=== PATIENT | male | born 1955 | race Caucasian/White ===

== ENCOUNTER 2024-01-07 04:29 | Inpatient (IN) ==
[2024-01-07] MEDS ORDERED: IOPAMIDOL 100 ML BOTTLE IV ONE (04:30)
[2024-01-07] MEDS: fentaNYL 100 MCG/2 ML VIAL IV ONE ×2 (04:40→12:08)
[2024-01-07] MEDS: METOPROLOL TARTRATE 5 MG/5 ML VIAL IV ONE ×3 (04:52→05:35)
[2024-01-07] MEDS: ONDANSETRON 4 MG/2 ML VIAL IV ONE (05:02)
[2024-01-07 05:16] LABS: ALT/SGPT 25 U/L (<40); AST/SGOT 24 U/L (<40); Albumin 4.4 gm/dL (3.2-5.2); Albumin/Globulin Ratio 1.8 (1.0-2.3); Alkaline Phosphatase 70 U/L (39-117); Amylase 42 U/L (28-100); Bilirubin,Total 1.4 mg/dL (0.1-1.0); Blood Urea Nitrogen 29 mg/dL (8-23); Calcium 9.3 mg/dL (8.6-10.4); Carbon Dioxide 25 mmol/L (22-30); Chloride 100 mmol/L (96-108); Globulin 2.5 gm/dL (2.2-3.7); Glomerular Filtration Rate 46; Glucose 165 mg/dL (70-105)
[2024-01-07 05:38] LABS: Phosphorous 2.9 mg/dL (2.5-4.5)
[2024-01-07 05:45] LABS: Thyroid Stimulating Hormone 1.91 uIU/mL (0.27-5.01)
[2024-01-07] MEDS: AMIODARONE 150 MG/3 ML VIAL IV ONE (05:51)
[2024-01-07 06:00] LABS: Basophils # (Auto) 0.04 K/mcL (0.00-0.30); Basophils % (Auto) 0.2 % (0.0-2.0); Eosinophils # (Auto) 0.02 K/mcL (0.00-0.70); Eosinophils % (Auto) 0.1 % (0.0-7.0); Hematocrit 56.5 % (40.1-51.0); Lymphocytes # (Auto) 1.06 K/mcL (1.50-4.80); Lymphocytes % (Auto) 6.3 % (15.5-49.0); Mean Cell Volume 93.4 fL (80.0-100.0); Mean Corpuscular HGB Conc 31.9 g/dL (31.0-36.0); Mean Platelet Volume 10.2 fL (8.8-12.5); Monocytes # (Auto) 1.14 K/mcL (0.10-0.90); Monocytes % (Auto) 6.8 % (1.0-12.0); Neutrophils % (Auto) 86.6 % (38.0-78.0); Platelet Count 167 K/mcL (140-440); RBC 6.05 M/mcL (4.63-6.08); Red Cell Distribution Width 13.7 % (11.5-14.5); WBC 16.7 K/mcL (4.5-11.0)
[2024-01-07 06:00] LABS: Partial Thromboplastin Time 33.7 sec (20.0-37.0)
[2024-01-07 06:09] LABS: INR 2.4 (0.9-1.1); Prothrombin Time 27.4 sec (11.9-14.5)
[2024-01-07] MEDS: 0.9 % SODIUM CHLORIDE 500 ML IV SCH (06:21)
[2024-01-07] MEDS: AMIODARONE 360 MG in PREMIX 1 BAG IV SCH ×2 (06:21→12:47)
[2024-01-07] MEDS: 0.9 % SODIUM CHLORIDE 1,000 ML IV ONE (06:21)
[2024-01-07] MEDS: PIPERACILLIN SODIUM/TAZOBACTAM 3.375 GM in DEXTROSE 5% IN WATER 50 ML IV ONE ×2 (06:21→06:24)
[2024-01-07] MEDS: LEVALBUTEROL 1.25 MG/3 ML AMPUL.NEB NEB ONE (06:22)
[2024-01-07 06:43] LABS: Free T4 (Free Thyroxine) 1.15 ng/dL (0.93-1.70)
[2024-01-07 08:28] LABS: Appearance,Urine Clear (Clear); Bilirubin,Urine Negative (Negative); Color,Urine Orange; Culture Indicated,Urine No; Glucose,Urine (UA) >=1000 mg/dL (Negative); Ketones,Urine 15 mg/dL (Negative); Leukocyte Esterase,Urine Negative /uL (Negative); Mucus,Urine FEW /hpf; Nitrate,Urine Negative (Negative); Protein,Urine 100 mg/dL (Negative); Sulfosalicylic Acid,Urine 1+ mg/dL (NEGATIVE); Urine Blood Small ery/mcL (Negative); Urine RBC 2 /hpf (0-3); Urine Squamous Epithelial Cell 0 /hpf (0-4); Urine Transitional Epi Cells < 1 /hpf (0-2); Urine WBC 2 /hpf (0-4); Urobilinogen,Urine Normal
[2024-01-07] MEDS: PHYTONADIONE 10 MG in 0.9 % SODIUM CHLORIDE 50 ML IV ONE (10:32)
[2024-01-07 12:07] LABS: Basophils # (Auto) 0.01 K/mcL (0.00-0.30); Basophils % (Auto) 0.1 % (0.0-2.0); Eosinophils # (Auto) 0 K/mcL (0.00-0.70); Eosinophils % (Auto) 0 % (0.0-7.0); Hematocrit 55.1 % (40.1-51.0); Hemoglobin 17.3 g/dL (13.7-17.5); Lymphocytes # (Auto) 0.42 K/mcL (1.50-4.80); Lymphocytes % (Auto) 2.1 % (15.5-49.0); Mean Cell Volume 93.9 fL (80.0-100.0); Mean Corpuscular HGB Conc 31.4 g/dL (31.0-36.0); Mean Platelet Volume 10.7 fL (8.8-12.5); Monocytes # (Auto) 1.46 K/mcL (0.10-0.90); Monocytes % (Auto) 7.3 % (1.0-12.0); Neutrophils % (Auto) 90.2 % (38.0-78.0); Platelet Count 138 K/mcL (140-440); RBC 5.87 M/mcL (4.63-6.08); Red Cell Distribution Width 13.9 % (11.5-14.5)
[2024-01-07 12:34] LABS: ALT/SGPT 25 U/L (<40); AST/SGOT 26 U/L (<40); Albumin 3.9 gm/dL (3.2-5.2); Albumin/Globulin Ratio 1.7 (1.0-2.3); Alkaline Phosphatase 57 U/L (39-117); Blood Urea Nitrogen 30 mg/dL (8-23); Calcium 8.5 mg/dL (8.6-10.4); Carbon Dioxide 20 mmol/L (22-30); Chloride 103 mmol/L (96-108); Globulin 2.3 gm/dL (2.2-3.7); Glomerular Filtration Rate 50; Glucose 141 mg/dL (70-105)
[2024-01-07] MEDS ORDERED: SENNOSIDES 1 TABLET PO PRN (12:41)
[2024-01-07] MEDS ORDERED: ACETAMINOPHEN 325 MG TABLET PO PRN (12:41)
[2024-01-07 13:18] LABS: INR 2.1 (0.9-1.1); Prothrombin Time 24.5 sec (11.9-14.5)
[2024-01-07] MEDS: 0.9 % SODIUM CHLORIDE 250 ML IV SCH ×2 (14:04)
[2024-01-07] MEDS: LACTATED RINGERS 1,000 ML IV SCH ×2 (14:36→21:37)
[2024-01-07] MEDS: METOPROLOL SUCCINATE 50 MG TAB.XL.24H PO SCH (14:36)
[2024-01-07] MEDS: ONDANSETRON 4 MG/2 ML VIAL IV PRN (14:36)
[2024-01-07] MEDS: HEPARIN SOD,PORK IN 0.45% NACL 25,000 UNIT in PREMIX 1 BAG IV SCH ×2 (14:36→15:10)
[2024-01-07] MEDS: morphine 4 MG/ML VIAL IV PRN (14:36)
[2024-01-07] MEDS: 0.9 % SODIUM CHLORIDE 10 ML SYRINGE IV SCH (14:37)
[2024-01-07] MEDS: HEPARIN SOD,PORK IN 0.45% NACL 500 ML IV ONE (15:09)
[2024-01-07 15:35] LABS: Partial Thromboplastin Time 35.8 sec (20.0-37.0)
[2024-01-07 15:36] LABS: INR 1.8 (0.9-1.1); Prothrombin Time 21.5 sec (11.9-14.5)
[2024-01-07] MEDS: PIPERACILLIN SODIUM/TAZOBACTAM 4.5 GM in 0.9 % SODIUM CHLORIDE 100 ML IV SCH (16:00)
[2024-01-07] MEDS: DOCUSATE SODIUM 100 MG CAPSULE PO SCH (21:42)
[2024-01-07] MEDS: Sacubitril-Valsartan [Entresto] 24-26 mg PO SCH (21:48)
[2024-01-08 00:07] LABS: INR 1.6 (0.9-1.1); Prothrombin Time 19.5 sec (11.9-14.5)
[2024-01-08] MEDS: AMIODARONE 360 MG/200 ML BAG IV ONE (00:14)
[2024-01-08] MEDS: PHYTONADIONE 10 MG/ML AMPUL SQ PRN (00:45)
[2024-01-08 05:35] LABS: Basophils # (Auto) 0.04 K/mcL (0.00-0.30); Basophils % (Auto) 0.3 % (0.0-2.0); Eosinophils # (Auto) 0 K/mcL (0.00-0.70); Eosinophils % (Auto) 0 % (0.0-7.0); Hematocrit 51.3 % (40.1-51.0); Hemoglobin 16.1 g/dL (13.7-17.5); Lymphocytes # (Auto) 0.95 K/mcL (1.50-4.80); Lymphocytes % (Auto) 6.4 % (15.5-49.0); Mean Cell Volume 94.5 fL (80.0-100.0); Mean Corpuscular HGB Conc 31.4 g/dL (31.0-36.0); Mean Platelet Volume 10.1 fL (8.8-12.5); Monocytes # (Auto) 1.08 K/mcL (0.10-0.90); Monocytes % (Auto) 7.3 % (1.0-12.0); Neutrophils % (Auto) 85.9 % (38.0-78.0); Platelet Count 117 K/mcL (140-440); RBC 5.43 M/mcL (4.63-6.08); Red Cell Distribution Width 14.1 % (11.5-14.5); WBC 14.8 K/mcL (4.5-11.0)
[2024-01-08 06:00] LABS: ALT/SGPT 20 U/L (<40); AST/SGOT 23 U/L (<40); Albumin 3.6 gm/dL (3.2-5.2); Albumin/Globulin Ratio 1.5 (1.0-2.3); Alkaline Phosphatase 54 U/L (39-117); Bilirubin,Total 1.2 mg/dL (0.1-1.0); Blood Urea Nitrogen 30 mg/dL (8-23); Calcium 9.5 mg/dL (8.6-10.4); Carbon Dioxide 25 mmol/L (22-30); Chloride 102 mmol/L (96-108); Globulin 2.4 gm/dL (2.2-3.7); Glomerular Filtration Rate 55; Glucose 101 mg/dL (70-105)
[2024-01-08] MEDS: HEPARIN 5,000 UNIT/ML VIAL ONE (06:34)
[2024-01-08] MEDS: HEPARIN SOD,PORK IN 0.45% NACL 500 ML IV ONE (07:12)
[2024-01-08 08:07] LABS: INR 1.6 (0.9-1.1)
[2024-01-08] MEDS: ACETAMINOPHEN 325 MG TABLET PO PRN (08:30)
[2024-01-08] MEDS: 0.9 % SODIUM CHLORIDE 250 ML IV SCH (08:57)
[2024-01-08] MEDS ORDERED: SPIRONOLACTONE 25 MG TABLET PO SCH (09:00)
[2024-01-08] MEDS: PHYTONADIONE 10 MG/ML AMPUL ONE (11:58)
[2024-01-08] MEDS: PHYTONADIONE 10 MG in 0.9 % SODIUM CHLORIDE 50 ML IV SCH (11:58)
[2024-01-08] MEDS: IPRATROPIUM/ALBUTEROL 3 ML AMPUL.NEB NEB PRN (16:57)
[2024-01-08 18:38] LABS: INR 1.3 (0.9-1.1); Prothrombin Time 16.9 sec (11.9-14.5)
[2024-01-08] MEDS: TAMSULOSIN 0.4 MG CAPSULE PO SCH (22:13)
[2024-01-09] MEDS: CALCIUM CARBONATE 500 MG TAB.CHEW CHEWED PRN (00:20)
[2024-01-09] MEDS: PROMETHAZINE 25 MG/ML VIAL IV ONE (01:08)
[2024-01-09] MEDS: PROMETHAZINE 25 MG/ML VIAL ONE (02:32)
[2024-01-09] MEDS ORDERED: IOPAMIDOL 100 ML BOTTLE IV ONE (03:51)
[2024-01-09 05:58] LABS: Basophils # (Auto) 0.02 K/mcL (0.00-0.30); Basophils % (Auto) 0.2 % (0.0-2.0); Eosinophils # (Auto) 0 K/mcL (0.00-0.70); Eosinophils % (Auto) 0 % (0.0-7.0); Hematocrit 50.5 % (40.1-51.0); Hemoglobin 15.8 g/dL (13.7-17.5); Lymphocytes # (Auto) 0.58 K/mcL (1.50-4.80); Lymphocytes % (Auto) 4.5 % (15.5-49.0); Mean Corpuscular HGB Conc 31.3 g/dL (31.0-36.0); Mean Platelet Volume 10.6 fL (8.8-12.5); Monocytes # (Auto) 0.91 K/mcL (0.10-0.90); Neutrophils % (Auto) 88.1 % (38.0-78.0); Platelet Count 139 K/mcL (140-440); RBC 5.37 M/mcL (4.63-6.08); Red Cell Distribution Width 13.9 % (11.5-14.5); WBC 12.9 K/mcL (4.5-11.0)
[2024-01-09 06:09] LABS: ALT/SGPT 15 U/L (<40); AST/SGOT 22 U/L (<40); Albumin 3.4 gm/dL (3.2-5.2); Albumin/Globulin Ratio 1.3 (1.0-2.3); Alkaline Phosphatase 51 U/L (39-117); Bilirubin,Total 1.6 mg/dL (0.1-1.0); Blood Urea Nitrogen 33 mg/dL (8-23); Carbon Dioxide 26 mmol/L (22-30); Chloride 100 mmol/L (96-108); Globulin 2.6 gm/dL (2.2-3.7); Glomerular Filtration Rate 50; Glucose 118 mg/dL (70-105)
[2024-01-09] MEDS ORDERED: KETAMINE 50 MG/ML Syringe IV ONE (12:35)
[2024-01-09] MEDS ORDERED: fentaNYL 100 MCG/2 ML VIAL ONE (12:35)
[2024-01-09] MEDS ORDERED: ROCURONIUM 10 MG/ML ML IV ONE (12:36)
[2024-01-09] MEDS ORDERED: ESMOLOL 100 MG/10 ML VIAL IV ONE (12:39)
[2024-01-09] MEDS ORDERED: LIDOCAINE 2% PF 5 ML VIAL ONE ×2 (12:39→14:12)
[2024-01-09] MEDS ORDERED: PROPOFOL 200 MG/20 ML VIAL IV ONE (12:39)
[2024-01-09] MEDS ORDERED: PHENYLephrine 1 MG/10 ML SYRINGE (ANEST) ONE ×2 (12:39→13:18)
[2024-01-09] MEDS ORDERED: PHENYLEPHRINE 10 MG/ML VIAL ONE (13:18)
[2024-01-09] MEDS ORDERED: SUGAMMADEX SODIUM 200 MG/2 ML VIAL IV ONE ×2 (13:50)
[2024-01-09] MEDS ORDERED: ONDANSETRON 4 MG/2 ML VIAL ONE (13:52)
[2024-01-09] MEDS ORDERED: DEXAMETHASONE 10 MG/ML VIAL ONE (13:52)
[2024-01-09] MEDS ORDERED: ROPIVACAINE HCL/PF 30 ML VIAL IJ ONE (13:54)
[2024-01-09] MEDS ORDERED: IPRATROPIUM/ALBUTEROL 3 ML AMPUL.NEB NEB PRN (14:15)
[2024-01-09] MEDS ORDERED: PROMETHAZINE 25 MG/ML VIAL IV PRN (14:15)
[2024-01-09] MEDS ORDERED: ONDANSETRON 4 MG/2 ML VIAL IV PRN (14:15)
[2024-01-09] MEDS ORDERED: fentaNYL 100 MCG/2 ML VIAL IV PRN (14:15)
[2024-01-09] MEDS ORDERED: HYDROmorphone 0.5 MG/0.5 ML SYRINGE IV PRN (14:15)
[2024-01-09] MEDS ORDERED: ALBUTEROL SULFATE 60 PUFF INHALER ONE (14:17)
[2024-01-09] MEDS: LACTATED RINGERS 1,000 ML IV ONE (17:05)
[2024-01-09] MEDS: LACTATED RINGERS 1,000 ML IV SCH ×2 (17:31→18:34)
[2024-01-09] MEDS ORDERED: ACETAMINOPHEN 1,000 MG/100 ML BAG IV PRN (17:37)
[2024-01-09] MEDS: ACETAMINOPHEN 1,000 MG/100 ML BAG IV SCH (17:45)
[2024-01-09] MEDS: ALBUMIN HUMAN 25 GM/100 ML BAG IV SCH (18:52)
[2024-01-09] MEDS: METOPROLOL TARTRATE 5 MG/5 ML VIAL IV SCH (20:07)
[2024-01-10 05:25] LABS: Basophils # (Auto) 0.01 K/mcL (0.00-0.30); Basophils % (Auto) 0.1 % (0.0-2.0); Eosinophils # (Auto) 0 K/mcL (0.00-0.70); Eosinophils % (Auto) 0 % (0.0-7.0); Hematocrit 48.8 % (40.1-51.0); Hemoglobin 15.4 g/dL (13.7-17.5); Lymphocytes # (Auto) 0.41 K/mcL (1.50-4.80); Lymphocytes % (Auto) 3.6 % (15.5-49.0); Mean Cell Volume 94.8 fL (80.0-100.0); Mean Corpuscular HGB Conc 31.6 g/dL (31.0-36.0); Mean Platelet Volume 10.4 fL (8.8-12.5); Monocytes # (Auto) 0.54 K/mcL (0.10-0.90); Monocytes % (Auto) 4.7 % (1.0-12.0); Neutrophils % (Auto) 91.5 % (38.0-78.0); Platelet Count 143 K/mcL (140-440); RBC 5.15 M/mcL (4.63-6.08); Red Cell Distribution Width 13.9 % (11.5-14.5); WBC 11.5 K/mcL (4.5-11.0)
[2024-01-10] MEDS: fentaNYL 100 MCG/2 ML VIAL IV PRN (05:38)
[2024-01-10 06:20] LABS: ALT/SGPT 10 U/L (<40); AST/SGOT 17 U/L (<40); Albumin 3.6 gm/dL (3.2-5.2); Albumin/Globulin Ratio 1.3 (1.0-2.3); Alkaline Phosphatase 43 U/L (39-117); Blood Urea Nitrogen 41 mg/dL (8-23); Calcium 9.9 mg/dL (8.6-10.4); Carbon Dioxide 30 mmol/L (22-30); Chloride 102 mmol/L (96-108); Globulin 2.7 gm/dL (2.2-3.7); Glomerular Filtration Rate 40; Glucose 163 mg/dL (70-105)
[2024-01-10] MEDS: LACTATED RINGERS 1,000 ML IV SCH (07:36)
[2024-01-10] MEDS: HEPARIN SOD,PORK IN 0.45% NACL 25,000 UNIT in PREMIX 1 BAG IV SCH (11:26)
[2024-01-10] MEDS: METOCLOPRAMIDE 10 MG/2 ML VIAL IV SCH (13:42)
[2024-01-10] MEDS: morphine 4 MG/ML VIAL IV ONE (14:04)
[2024-01-10] MEDS: METOPROLOL TARTRATE 5 MG/5 ML VIAL IV PRN (15:33)
[2024-01-11 06:12] LABS: Basophils # (Auto) 0.01 K/mcL (0.00-0.30); Basophils % (Auto) 0.1 % (0.0-2.0); Eosinophils # (Auto) 0.01 K/mcL (0.00-0.70); Eosinophils % (Auto) 0.1 % (0.0-7.0); Hematocrit 47.9 % (40.1-51.0); Hemoglobin 14.7 g/dL (13.7-17.5); Lymphocytes # (Auto) 0.98 K/mcL (1.50-4.80); Lymphocytes % (Auto) 8.3 % (15.5-49.0); Mean Cell Volume 95.8 fL (80.0-100.0); Mean Corpuscular HGB Conc 30.7 g/dL (31.0-36.0); Mean Platelet Volume 10.5 fL (8.8-12.5); Monocytes # (Auto) 1.03 K/mcL (0.10-0.90); Monocytes % (Auto) 8.7 % (1.0-12.0); Neutrophils % (Auto) 82.5 % (38.0-78.0); Platelet Count 155 K/mcL (140-440); Red Cell Distribution Width 13.8 % (11.5-14.5); WBC 11.8 K/mcL (4.5-11.0)
[2024-01-11 06:21] LABS: ALT/SGPT 12 U/L (<40); AST/SGOT 24 U/L (<40); Albumin 4.1 gm/dL (3.2-5.2); Albumin/Globulin Ratio 1.7 (1.0-2.3); Alkaline Phosphatase 39 U/L (39-117); Blood Urea Nitrogen 37 mg/dL (8-23); Calcium 10.3 mg/dL (8.6-10.4); Carbon Dioxide 36 mmol/L (22-30); Chloride 105 mmol/L (96-108); Globulin 2.4 gm/dL (2.2-3.7); Glomerular Filtration Rate 55; Glucose 123 mg/dL (70-105)
[2024-01-11] MEDS: LACTATED RINGERS 1,000 ML IV SCH (07:24)
[2024-01-11] MEDS: 0.45 % SODIUM CHLORIDE 1,000 ML IV SCH (08:14)
[2024-01-11 09:41] LABS: INR 1.1 (0.9-1.1); Prothrombin Time 15.1 sec (11.9-14.5)
[2024-01-11 14:17] LABS: Basophils # (Auto) 0.01 K/mcL (0.00-0.30); Basophils % (Auto) 0.1 % (0.0-2.0); Eosinophils # (Auto) 0.01 K/mcL (0.00-0.70); Eosinophils % (Auto) 0.1 % (0.0-7.0); Hematocrit 48.8 % (40.1-51.0); Hemoglobin 14.8 g/dL (13.7-17.5); Lymphocytes # (Auto) 1.01 K/mcL (1.50-4.80); Lymphocytes % (Auto) 8.9 % (15.5-49.0); Mean Cell Volume 96.1 fL (80.0-100.0); Mean Corpuscular HGB Conc 30.3 g/dL (31.0-36.0); Mean Platelet Volume 10.2 fL (8.8-12.5); Monocytes # (Auto) 1.09 K/mcL (0.10-0.90); Monocytes % (Auto) 9.6 % (1.0-12.0); Neutrophils % (Auto) 80.9 % (38.0-78.0); Platelet Count 160 K/mcL (140-440); RBC 5.08 M/mcL (4.63-6.08); Red Cell Distribution Width 13.8 % (11.5-14.5); WBC 11.3 K/mcL (4.5-11.0)
[2024-01-11] MEDS: DEXTROSE 5% IN WATER 1,000 ML IV SCH (14:45)
[2024-01-11 16:09] LABS: Estimated Average Glucose(eAG) 128 mg/dL; Hemoglobin A1C 6.1 % Hgb (4.0-6.0)
[2024-01-11] MEDS: PANTOPRAZOLE 40 MG VIAL IV SCH (17:13)
[2024-01-12 06:03] LABS: Basophils # (Auto) 0.02 K/mcL (0.00-0.30); Basophils % (Auto) 0.2 % (0.0-2.0); Eosinophils # (Auto) 0.09 K/mcL (0.00-0.70); Eosinophils % (Auto) 1.1 % (0.0-7.0); Hematocrit 47.5 % (40.1-51.0); Hemoglobin 14.5 g/dL (13.7-17.5); Lymphocytes # (Auto) 1.14 K/mcL (1.50-4.80); Lymphocytes % (Auto) 13.4 % (15.5-49.0); Mean Cell Volume 96.2 fL (80.0-100.0); Mean Corpuscular HGB Conc 30.5 g/dL (31.0-36.0); Mean Platelet Volume 10.5 fL (8.8-12.5); Monocytes # (Auto) 0.89 K/mcL (0.10-0.90); Monocytes % (Auto) 10.5 % (1.0-12.0); Neutrophils % (Auto) 74.4 % (38.0-78.0); Platelet Count 145 K/mcL (140-440); RBC 4.94 M/mcL (4.63-6.08); Red Cell Distribution Width 13.8 % (11.5-14.5); WBC 8.5 K/mcL (4.5-11.0)
[2024-01-12 06:54] LABS: ALT/SGPT 26 U/L (<40); AST/SGOT 41 U/L (<40); Albumin/Globulin Ratio 1.9 (1.0-2.3); Alkaline Phosphatase 40 U/L (39-117); Bilirubin,Direct 0.6 mg/dL (<0.3); Bilirubin,Total 1.4 mg/dL (0.1-1.0); Blood Urea Nitrogen 31 mg/dL (8-23); Calcium 9.5 mg/dL (8.6-10.4); Carbon Dioxide 31 mmol/L (22-30); Chloride 102 mmol/L (96-108); Globulin 2.1 gm/dL (2.2-3.7); Glomerular Filtration Rate 61; Glucose 116 mg/dL (70-105); Lactate Dehydrogenase 185 U/L (135-225); Phosphorous 2.3 mg/dL (2.5-4.5); Triglycerides 95 mg/dL (<150); Uric Acid 2.5 mg/dL (2.5-8.0)
[2024-01-12] MEDS: METOPROLOL TARTRATE 5 MG/5 ML VIAL IV SCH (07:54)
[2024-01-12] MEDS: FUROSEMIDE 20 MG TABLET PO SCH (08:31)
[2024-01-12] MEDS: SPIRONOLACTONE 25 MG TABLET PO SCH (08:31)
[2024-01-12] MEDS: POTASSIUM CHLORIDE 20 MEQ PACKET PO ONE (14:13)
[2024-01-12] MEDS: METOPROLOL SUCCINATE 50 MG TAB.XL.24H PO SCH (17:15)
[2024-01-12] MEDS: ATORVASTATIN 10 MG TABLET PO SCH (20:25)
[2024-01-12 23:02] LABS: Blood Urea Nitrogen 30 mg/dL (8-23); Calcium 9.5 mg/dL (8.6-10.4); Carbon Dioxide 33 mmol/L (22-30); Chloride 102 mmol/L (96-108); Glomerular Filtration Rate 61; Glucose 113 mg/dL (70-105)
[2024-01-13 06:38] LABS: ALT/SGPT 74 U/L (<40); AST/SGOT 78 U/L (<40); Albumin 3.7 gm/dL (3.2-5.2); Albumin/Globulin Ratio 1.8 (1.0-2.3); Alkaline Phosphatase 47 U/L (39-117); Bilirubin,Direct 0.5 mg/dL (<0.3); Bilirubin,Total 1.3 mg/dL (0.1-1.0); Blood Urea Nitrogen 26 mg/dL (8-23); Calcium 9.2 mg/dL (8.6-10.4); Carbon Dioxide 28 mmol/L (22-30); Chloride 104 mmol/L (96-108); Globulin 2.1 gm/dL (2.2-3.7); Glomerular Filtration Rate 67; Glucose 142 mg/dL (70-105); Lactate Dehydrogenase 215 U/L (135-225); Phosphorous 2.6 mg/dL (2.5-4.5); Triglycerides 117 mg/dL (<150); Uric Acid 1.8 mg/dL (2.5-8.0)
[2024-01-13] MEDS: ENOXAPARIN 40 MG/0.4 ML SYRINGE SQ ONE (08:27)
[2024-01-13] MEDS: WARFARIN 7.5 MG TABLET PO ONE (13:33)
[2024-01-14 06:12] LABS: Basophils # (Auto) 0.04 K/mcL (0.00-0.30); Basophils % (Auto) 0.4 % (0.0-2.0); Eosinophils # (Auto) 0.22 K/mcL (0.00-0.70); Eosinophils % (Auto) 2.2 % (0.0-7.0); Hemoglobin 16.1 g/dL (13.7-17.5); Lymphocytes # (Auto) 1.16 K/mcL (1.50-4.80); Lymphocytes % (Auto) 11.4 % (15.5-49.0); Mean Cell Volume 95.1 fL (80.0-100.0); Mean Platelet Volume 10.4 fL (8.8-12.5); Monocytes # (Auto) 0.73 K/mcL (0.10-0.90); Monocytes % (Auto) 7.2 % (1.0-12.0); Neutrophils % (Auto) 78.3 % (38.0-78.0); Platelet Count 190 K/mcL (140-440); RBC 5.47 M/mcL (4.63-6.08); Red Cell Distribution Width 13.1 % (11.5-14.5); WBC 10.2 K/mcL (4.5-11.0)
[2024-01-14 06:47] LABS: INR 1.2 (0.9-1.1); Prothrombin Time 15.4 sec (11.9-14.5)
[2024-01-14 07:03] LABS: ALT/SGPT 133 U/L (<40); AST/SGOT 101 U/L (<40); Albumin 3.8 gm/dL (3.2-5.2); Albumin/Globulin Ratio 1.5 (1.0-2.3); Alkaline Phosphatase 56 U/L (39-117); Bilirubin,Direct 0.5 mg/dL (<0.3); Bilirubin,Total 1.2 mg/dL (0.1-1.0); Blood Urea Nitrogen 26 mg/dL (8-23); Calcium 9.2 mg/dL (8.6-10.4); Carbon Dioxide 26 mmol/L (22-30); Chloride 104 mmol/L (96-108); Globulin 2.5 gm/dL (2.2-3.7); Glomerular Filtration Rate 67; Glucose 144 mg/dL (70-105); Lactate Dehydrogenase 240 U/L (135-225); Phosphorous 2.1 mg/dL (2.5-4.5); Triglycerides 125 mg/dL (<150); Uric Acid 2.1 mg/dL (2.5-8.0)
[2024-01-14] MEDS: ENOXAPARIN 40 MG/0.4 ML SYRINGE SQ SCH (08:42)
[2024-01-14] MEDS: METOPROLOL SUCCINATE 50 MG TAB.XL.24H PO SCH (08:42)
[2024-01-14] MEDS: oxyCODONE/APAP 5/325MG TABLET PO PRN (09:26)
[2024-01-14] MEDS: METOPROLOL TARTRATE 5 MG/5 ML VIAL IV PRN (10:04)
[2024-01-14] MEDS: WARFARIN 7.5 MG TABLET PO ONE (14:51)
[2024-01-14] MEDS: oxyCODONE IR 5 MG TABLET PO PRN (20:42)
[2024-01-15 06:27] LABS: ALT/SGPT 336 U/L (<40); AST/SGOT 248 U/L (<40); Albumin 3.6 gm/dL (3.2-5.2); Albumin/Globulin Ratio 1.7 (1.0-2.3); Alkaline Phosphatase 60 U/L (39-117); Bilirubin,Direct 0.4 mg/dL (<0.3); Bilirubin,Total 0.7 mg/dL (0.1-1.0); Blood Urea Nitrogen 23 mg/dL (8-23); Carbon Dioxide 28 mmol/L (22-30); Chloride 105 mmol/L (96-108); Globulin 2.1 gm/dL (2.2-3.7); Glomerular Filtration Rate 76; Glucose 116 mg/dL (70-105); Lactate Dehydrogenase 257 U/L (135-225); Phosphorous 2.5 mg/dL (2.5-4.5); Triglycerides 115 mg/dL (<150); Uric Acid 2.9 mg/dL (2.5-8.0)
[2024-01-15 06:52] LABS: INR 1.4 (0.9-1.1); Prothrombin Time 18.3 sec (11.9-14.5)
[2024-01-15] MEDS: WARFARIN 5 MG TABLET PO ONE (15:18)
[2024-01-15] MEDS: PANTOPRAZOLE 40 MG TABLET PO SCH (17:16)
[2024-01-16 06:50] LABS: ALT/SGPT 403 U/L (<40); AST/SGOT 213 U/L (<40); Albumin 3.7 gm/dL (3.2-5.2); Albumin/Globulin Ratio 1.5 (1.0-2.3); Alkaline Phosphatase 69 U/L (39-117); Bilirubin,Direct 0.3 mg/dL (<0.3); Bilirubin,Total 0.7 mg/dL (0.1-1.0); Blood Urea Nitrogen 25 mg/dL (8-23); Calcium 9.3 mg/dL (8.6-10.4); Carbon Dioxide 27 mmol/L (22-30); Chloride 101 mmol/L (96-108); Globulin 2.4 gm/dL (2.2-3.7); Glomerular Filtration Rate 67; Glucose 117 mg/dL (70-105); Lactate Dehydrogenase 225 U/L (135-225); Phosphorous 2.3 mg/dL (2.5-4.5); Triglycerides 119 mg/dL (<150); Uric Acid 4.2 mg/dL (2.5-8.0)
[2024-01-16 07:09] LABS: INR 1.6 (0.9-1.1); Prothrombin Time 19.6 sec (11.9-14.5)
[2024-01-16] MEDS: FUROSEMIDE 40 MG/4 ML VIAL IV ONE (09:16)
[2024-01-16] MEDS: METOPROLOL SUCCINATE 50 MG TAB.XL.24H PO SCH (09:16)
[2024-01-16] MEDS: SIMETHICONE 80 MG TAB.CHEW CHEWED SCH (13:29)
[2024-01-16] MEDS: WARFARIN 5 MG TABLET PO ONE (13:29)
[2024-01-16] MEDS: FUROSEMIDE 20 MG/2 ML VIAL IV ONE (15:52)
[2024-01-17 06:45] LABS: ALT/SGPT 360 U/L (<40); AST/SGOT 144 U/L (<40); Albumin 3.9 gm/dL (3.2-5.2); Albumin/Globulin Ratio 1.6 (1.0-2.3); Alkaline Phosphatase 72 U/L (39-117); Bilirubin,Direct 0.3 mg/dL (<0.3); Bilirubin,Total 0.8 mg/dL (0.1-1.0); Blood Urea Nitrogen 30 mg/dL (8-23); Calcium 9.2 mg/dL (8.6-10.4); Carbon Dioxide 29 mmol/L (22-30); Chloride 98 mmol/L (96-108); Globulin 2.4 gm/dL (2.2-3.7); Glomerular Filtration Rate 55; Glucose 133 mg/dL (70-105); Lactate Dehydrogenase 227 U/L (135-225); Phosphorous 2.4 mg/dL (2.5-4.5); Triglycerides 105 mg/dL (<150); Uric Acid 5.5 mg/dL (2.5-8.0)
[2024-01-17 09:23] LABS: INR 2.1 (0.9-1.1); Prothrombin Time 24.4 sec (11.9-14.5)
[2024-01-17] MEDS: WARFARIN 3 MG TABLET PO ONE (14:47)
[2024-01-18 15:51] LABS: Hepatitis A Antibody IgM Non-Reactive (Non-Reactive); Hepatitis B Surface Antigen Negative (Negative); Hepatitis C Virus Antibody Non-Reactive (Non-Reactive)
== END 2024-01-17 16:20 | disposition home or self-care (01) | DRG 329 ==
LOC: ED 04:29 → ICU 12:14 → MEDSUR 01-13 17:23
PROVIDERS: ADMIT Student in an Organized Health Care Education/Training Program; ATTEND Family Medicine Adult Medicine
PROC: LAPAPPY (ICD-10-PCS; 2024-01-09 12:59)